=== PATIENT | male | born 1970 | race African-American/Black ===

== ENCOUNTER → 2017-10-09 | Outpatient (CLI) | payer OTHER | END | disposition home or self-care (01) | LOC: US 15:13 | DX: L03.116 Cellulitis of left lower limb (principal); M79.89 Other specified soft tissue disorders | CPT/HCPCS: 93971 ==

== ENCOUNTER → 2018-09-17 | Outpatient (CLI) | payer OTHER ==
[2015-09-21 11:17] VITALS: BP 122/78
[~2018-09-17] MED LIST: ALPR0.254 PO; ASPI-482 PO; CLOP75TA PO; IBUP-1007 PO; LISI-334 PO; POTA99TA PO
[2018-09-17 08:35] LABS: CHOLESTEROL/HDL RATIO 3.2
== END | disposition home or self-care (01) ==
LOC: LAB 07:50
PROVIDERS: ATTEND Internal Medicine Cardiovascular Disease
DX: I25.10 Atherosclerotic heart disease of native coronary artery without angina pectoris (principal)
CPT/HCPCS: 36415; 80061; 83721

== ENCOUNTER 2019-06-21 08:10 | Inpatient (IN) | payer BC, OTHER ==
[~2019-06-21] VITALS: Ht 185.4 cm; Wt 147.0 kg
--- NOTE | 2019-06-21 08:48 | PHYS DOC ---
Past Medical History Past Medical History: CAD, Hypertension, CA Past Surgical History: Other Additional Past Surgical Histo: 1 STENT PLACED, Bina-en-Y bariatric surgery Smoking: Cigarettes (The patient is a nonsmoker.) Alcohol Use: Rarely Drug Use: None Adult General Chief Complaint Chief Complaint: TARRY STOOL HPI HPI Patient is a 49-year-old male who presents to the emergency department for evaluation. He states that for the past 3-4 days he has had some dark, tarry sto ols. He states that he takes iron and did not think much of his dark stools, and did recently changed the brand of the iron supplementation was taking. He reports that about a week ago he had an episode of shortness of breath when walking up stairs but this has not been persistent. He denies having had or currently having any chest pain, denies current dyspnea on exertion, pleuritic pain, cough, although he does admit some occasional dizziness and lightheadedness. There are no alleviating or exacerbating factors to his symptoms except as noted above.. Review of Systems Review of Systems Constitutional: Denies fever or chills [] Eyes: Denies change in visual acuity, redness, or eye pain [] HENT: Denies nasal congestion or sore throat [] Respiratory: Denies cough or current shortness of breath [] Cardiovascular: No additional information not addressed in HPI [] GI: Denies abdominal pain, nausea, vomiting, grossly bloody stools or diarrhea [] : Denies dysuria or hematuria [] Musculoskeletal: Denies back pain or joint pain [] Integument: Denies rash or skin lesions [] Neurologic: Denies headache, focal weakness or sensory changes [] Endocrine: Denies polyuria or polydipsia [] All other systems were reviewed and found to be within normal limits, except as documented in this note. Current Medications Current Medications Current Medications Medications (Trade) Dose Ordered Sig/Matilde Start Time Stop Time Status Last Admin Dose Admin Dextrose/Lactated Ringer's 1,000 ml @ 125 mls/hr 1X ONCE 06/21/19 10:45 06/21/19 18:44 Pantoprazole Sodium (PROTONIX VIAL for IV PUSH) 80 mg 1X ONCE 06/21/19 10:30 06/21/19 10:31 DC 06/21/19 10:34 80 MG Allergies Allergies Allergies Coded Allergies Type Severity Reaction Last Updated Verified No Known Drug Allergies 2/24/16 No Physical Exam Physical Exam PHYSICAL EXAM: CONSTITUTIONAL: Well developed, well nourished HEAD: normocephalic, atraumatic EENT: PERRL, EOMI. Conjunctivae mildly pale, sclerae non-icteric; moist mucous membranes. NECK: Supple, non-tender; no meningismus. LUNGS: Lungs CTA, breathing even and unlabored. Normal air movement. HEART: Regular rate and rhythm, no murmur CHEST: No deformity; non-tender ABDOMEN: The abdomen is soft, and non-tender, no masses or bruits. EXTREM: Normal ROM; no deformity, no calf tenderness. Normal pulses palpable in all extremities. There is no pedal edema. SKIN: No rash; no diaphoresis NEURO: Alert; normal speech and cognition; CN's grossly intact; strength grossly intact without focal deficit. BACK: No CVA TTP. RECTAL EXAM: Brown stool is present, no gross blood. Current Patient Data Vital Signs Vital Signs Date Time Temp Pulse Resp B/P (MAP) Pulse Ox O2 Delivery O2 Flow Rate FiO2 06/21/19 09:55 122/73 (89) 06/21/19 08:41 97.9 88 18 97 Room Air 97.9 Lab Values Laboratory Tests Test 06/21/19 08:50 06/21/19 09:05 Stool Occult Blood Negative (NEG) White Blood Count 7.4 x10^3/uL (4.0-11.0) Red Blood Count 3.42 x10^6/uL (4.30-5.70) L Hemoglobin 9.5 g/dL (13.0-17.5) L Hematocrit 29.4 % (39.0-53.0) L Mean Corpuscular Volume 86 fL (79-100) Mean Corpuscular Hemoglobin 28 pg (25-35) Mean Corpuscular Hemoglobin Concent 32 g/dL (31-37) Red Cell Distribution Width 14.6 % (11.5-14.5) H Platelet Count 274 x10^3/uL (140-400) Neutrophils (%) (Auto) 75 % (31-73) H Lymphocytes (%) (Auto) 16 % (24-48) L Monocytes (%) (Auto) 7 % (0-9) Eosinophils (%) (Auto) 1 % (0-3) Basophils (%) (Auto) 1 % (0-3) Neutrophils # (Auto) 5.6 x10^3/uL (1.8-7.7) Lymphocytes # (Auto) 1.2 x10^3/uL (1.0-4.8) Monocytes # (Auto) 0.5 x10^3/uL (0.0-1.1) Eosinophils # (Auto) 0.1 x10^3/uL (0.0-0.7) Basophils # (Auto) 0.0 x10^3/uL (0.0-0.2) Prothrombin Time 13.3 SEC (11.7-14.0) Prothrombin Time INR 1.0 (0.8-1.1) Activated Partial Thromboplast Time 30 SEC (24-38) Sodium Level 141 mmol/L (136-145) Potassium Level 3.9 mmol/L (3.5-5.1) Chloride Level 105 mmol/L (98-107) Carbon Dioxide Level 30 mmol/L (21-32) Anion Gap 6 (6-14) Blood Urea Nitrogen 15 mg/dL (8-26) Creatinine 1.1 mg/dL (0.7-1.3) Estimated GFR (Cockcroft-Gault) 86.8 BUN/Creatinine Ratio 14 (6-20) Glucose Level 99 mg/dL (70-99) Calcium Level 8.4 mg/dL (8.5-10.1) L Total Bilirubin 0.4 mg/dL (0.2-1.0) Aspartate Amino Transferase (AST) 22 U/L (15-37) Alanine Aminotransferase (ALT) 25 U/L (16-63) Alkaline Phosphatase 53 U/L (46-116) Troponin I Quantitative < 0.017 ng/mL (0.000-0.055) JI-Mqv-Z-Type Natriuretic Peptide 54 pg/mL (0-124) Total Protein 6.7 g/dL (6.4-8.2) Albumin 3.3 g/dL (3.4-5.0) L Albumin/Globulin Ratio 1.0 (1.0-1.7) Laboratory Tests 06/21/19 09:05 Laboratory Tests 06/21/19 09:05 EKG EKG [] Radiology/Procedures Radiology/Procedures PROCEDURE: CHEST PA & LATERAL EXAM: PA and Lateral Views of the Chest DATE: 06/21/2019 8:37 AM INDICATION: Shortness of breath, dyspnea on exertion COMPARISON: 09/22/2015 FINDINGS/ IMPRESSION: Exam is limited by mild motion artifact. Within these constraints the cardiac mediastinal silhouette is normal. No lobar consolidation. No pleural effusion or pneumothorax.[] Course & Med Decision Making Course & Med Decision Making Pertinent Labs and Imaging studies reviewed. (See chart for details) []10:05 AM: The patient's condition remains stable. He has had dark stool and appears to have anemia. I do not have a recent hemoglobin available for him, but he has been higher in the past. This was before his gastric bypass however. He is on aspirin and Plavix, which make him high risk for GI bleeding. I paged the hospitalist, who will admit the patient to the hospital for further evaluation and treatment. 10:50 AM: I did receive some additional records from . The patient's hemoglobin was 14, hematocrit 45, on 05/11/19. Dragon Disclaimer Dragon Disclaimer This electronic medical record was generated, in whole or in part, using a voice recognition dictation system. Departure Departure Impression: Primary Impression: Anemia Additional Impression: Dark stools Disposition: ADMITTED INPATIENT Condition: STABLE Referrals: CATHERINE JULES MD (PCP) Problem Qualifiers CAITLIN ALBA MD Jun 21, 2019 08:48
--- NOTE | 2019-06-21 09:05 | RAD ---
EXAM: PA and Lateral Views of the Chest DATE: 06/21/2019 8:37 AM INDICATION: Shortness of breath, dyspnea on exertion COMPARISON: 09/22/2015 FINDINGS/ IMPRESSION: Exam is limited by mild motion artifact. Within these constraints the cardiac mediastinal silhouette is normal. No lobar consolidation. No pleural effusion or pneumothorax. Electronically signed by: Amos Melendez MD (06/21/2019 9:02 AM) [id number]
[2019-06-21 09:14] LABS: FECAL OB PT NEGATIVE (NEG)
[2019-06-21 09:24] LABS: BASO % 1 % (0-3); EOS # 0.1 x10^3/uL (0.0-0.7); EOS % 1 % (0-3); HEMATOCRIT 29.4 % (39.0-53.0); HEMOGLOBIN 9.5 g/dL (13.0-17.5); LYMPH # 1.2 x10^3/uL (1.0-4.8); LYMPH % 16 % (24-48); MEAN CORPUSCULAR HEMOGLOBIN 28 pg (25-35); MEAN CORPUSCULAR HGB CONC 32 g/dL (31-37); MEAN CORPUSCULAR VOLUME 86 fL (79-100); MONO # 0.5 x10^3/uL (0.0-1.1); MONO % 7 % (0-9); NEUT # 5.6 x10^3/uL (1.8-7.7); NEUT % 75 % (31-73); PLATELET COUNT 274 x10^3/uL (140-400); RED BLOOD COUNT 3.42 x10^6/uL (4.30-5.70); RED CELL DISTRIBUTION WIDTH 14.6 % (11.5-14.5); WHITE BLOOD COUNT 7.4 x10^3/uL (4.0-11.0)
[2019-06-21 09:34] LABS: PROTHROMBIN TIME PATIENT 13.3 SEC (11.7-14.0)
[2019-06-21 09:35] LABS: CALCIUM 8.4 mg/dL (8.5-10.1); CREATININE 1.1 mg/dL (0.7-1.3); GFR 86.8; POTASSIUM 3.9 mmol/L (3.5-5.1)
[2019-06-21 09:41] LABS: ALBUMIN 3.3 g/dL (3.4-5.0); TOTAL BILIRUBIN 0.4 mg/dL (0.2-1.0); TOTAL PROTEIN 6.7 g/dL (6.4-8.2)
[2019-06-21] MEDS ORDERED: PANTOPRAZOLE IV PUSH 40 MG VIAL. IVP ONE (10:30)
[2019-06-21] MEDS ORDERED: IV DEXTROSE 5%-LACT RINGERS 1,000 ML IV ONE (10:45)
[2019-06-21 12:00] VITALS: BP 144/70
--- NOTE | 2019-06-21 13:37 | PDOC2 ---
GI CONSULT Reason For Consult: possible UGI bleed post Bina-en-Y HPI: HPI: 49 y/o male admitted through ER - d/w ER physician earlier today - dark stools and anemia w/ h/o Bina-en-Y. Patient reports black stools x about 5 days - first runny, then "pasty," and now more formed. Takes iron and had black stool in the past w/ this - recently changed brands and wonders if that contributes. Also wonders if he had "the bug going around." Last stool looked more normal in color. Did feel a little dizzy and light-headed. H/o GERD - previously on pantoprazole, stopped after Bina-en-Y. Now has a lot of burping - worse yesterday. Occasional dysphagia (food caught in midchest) when eats too quickly. No n/v. Doesn't think he has abdominal pain - but feels funny when he sees dark stool, wonders about anxiety. No diarrhea or constipation. No hematochezia. Has lost 107 pounds since Bina-en-Y (at [facility] in 04/2018 w/ Dr. Gudino) - watches what he eats, walks three miles daily. Assumes had an EGD prior to Bina-en-Y but isn't sure. No previous colonoscopy. No GB, liver, pancreas, or PUD history. Used to take ibuprofen more frequently before Bina-en-Y, but now takes about once weekly for muscle cramps - tries to stick with Tylenol otherwise. PMH: PMH: CAD w/ stent, HTN, GERD, Bina-en-Y FH: Family History: Cancer (mother - stomach), CAD, Hypertension Social History: Smoke: No ALCOHOL: other (glass of wine 5 nights a week) Drugs: None ROS: GEN: Denies fevers, chills, sweats HEENT: Denies blurred vision, sore throat CV: Denies chest pain RESP: Denies shortness of air, cough GI: Per HPI : Denies hematuria, dysuria ENDO: +weight loss NEURO: +dizziness MSK: Denies weakness, joint pain/swelling SKIN: Denies jaundice, pruritus Vitals: Vitals: Vital Signs Date Time Temp Pulse Resp B/P (MAP) Pulse Ox O2 Delivery O2 Flow Rate FiO2 11/25/19 12:00 97.8 82 19 144/70 (94) 98 Room Air 97.8 Labs: Labs: Laboratory Tests Test 06/21/19 08:50 06/21/19 09:05 06/21/19 10:55 Stool Occult Blood Negative (NEG) White Blood Count 7.4 x10^3/uL (4.0-11.0) Red Blood Count 3.42 x10^6/uL (4.30-5.70) Hemoglobin 9.5 g/dL (13.0-17.5) 8.7 g/dL (13.0-17.5) Hematocrit 29.4 % (39.0-53.0) Mean Corpuscular Volume 86 fL (79-100) Mean Corpuscular Hemoglobin 28 pg (25-35) Mean Corpuscular Hemoglobin Concent 32 g/dL (31-37) Red Cell Distribution Width 14.6 % (11.5-14.5) Platelet Count 274 x10^3/uL (140-400) Neutrophils (%) (Auto) 75 % (31-73) Lymphocytes (%) (Auto) 16 % (24-48) Monocytes (%) (Auto) 7 % (0-9) Eosinophils (%) (Auto) 1 % (0-3) Basophils (%) (Auto) 1 % (0-3) Neutrophils # (Auto) 5.6 x10^3/uL (1.8-7.7) Lymphocytes # (Auto) 1.2 x10^3/uL (1.0-4.8) Monocytes # (Auto) 0.5 x10^3/uL (0.0-1.1) Eosinophils # (Auto) 0.1 x10^3/uL (0.0-0.7) Basophils # (Auto) 0.0 x10^3/uL (0.0-0.2) Prothrombin Time 13.3 SEC (11.7-14.0) Prothromb Time International Ratio 1.0 (0.8-1.1) Activated Partial Thromboplast Time 30 SEC (24-38) Sodium Level 141 mmol/L (136-145) Potassium Level 3.9 mmol/L (3.5-5.1) Chloride Level 105 mmol/L (98-107) Carbon Dioxide Level 30 mmol/L (21-32) Anion Gap 6 (6-14) Blood Urea Nitrogen 15 mg/dL (8-26) Creatinine 1.1 mg/dL (0.7-1.3) Estimated GFR (Cockcroft-Gault) 86.8 BUN/Creatinine Ratio 14 (6-20) Glucose Level 99 mg/dL (70-99) Calcium Level 8.4 mg/dL (8.5-10.1) Total Bilirubin 0.4 mg/dL (0.2-1.0) Aspartate Amino Transf (AST/SGOT) 22 U/L (15-37) Alanine Aminotransferase (ALT/SGPT) 25 U/L (16-63) Alkaline Phosphatase 53 U/L (46-116) Troponin I Quantitative < 0.017 ng/mL (0.000-0.055) HT-Gfk-Z-Type Natriuretic Peptide 54 pg/mL (0-124) Total Protein 6.7 g/dL (6.4-8.2) Albumin 3.3 g/dL (3.4-5.0) Albumin/Globulin Ratio 1.0 (1.0-1.7) Allergies: Coded Allergies: No Known Drug Allergies (Unverified , 09/20/15) Medications: Current Medications Medications (Trade) Dose Ordered Sig/Matilde Route PRN Reason Start Time Stop Time Status Last Admin Dose Admin Pantoprazole Sodium (PROTONIX VIAL for IV PUSH) 80 mg 1X ONCE IVP 06/21/19 10:30 06/21/19 10:31 DC 06/21/19 10:34 Dextrose/Lactated Ringer's 1,000 ml @ 125 mls/hr 1X ONCE IV 06/21/19 10:45 06/21/19 18:44 06/21/19 11:17 Imaging: Imaging: CXR IMPRESSION: Exam is limited by mild motion artifact. Within these constraints the cardiac mediastinal silhouette is normal. No lobar consolidation. No pleural effusion or pneumothorax. PE: GEN: NAD HEENT: Atraumatic, PERRL LUNGS: CTAB HEART: RRR ABD: NABS, S/ND/NT EXTREMITY: No edema SKIN: No rashes, no jaundice NEURO/PSYCH: A & O 3 A/P: A/P: Black stools - on iron Anemia - Hgb 9.5 (8.7 on recheck), Hemoccult negative - ER note indicates Hgb 14 on 05/11/19 GERD - stopped PPI in 2018 S/p Bina-en-Y @ [facility] in 04/2018 CRC screen - average risk H/o CAD on ASA and Plavix NSAID use - weekly ibuprofen -- Reviewed w/ Dr. Forman - stay NPO for EGD this afternoon. Continue PPI. Outpt screening colonoscopy at age 52. JUANITA PURCELL Jun 21, 2019 13:37
[2019-06-21 15:00] VITALS: BP 149/74
[2019-06-21] MEDS ORDERED: IV RINGERS,LACTATED 1000ML 1,000 ML IV ONE (15:15)
[2019-06-21] MEDS ORDERED: ALPR2TAB5 PO (15:29)
[2019-06-21] MEDS ORDERED: HYDR12.58 PO (15:29)
[2019-06-21] MEDS ORDERED: CHOL100014 PO (15:29)
[2019-06-21] MEDS ORDERED: MULT-496 PO (15:29)
[2019-06-21] MEDS ORDERED: AMLO10TA8 PO (15:29)
[2019-06-21] MEDS ORDERED: PANT20TA2 PO (15:29)
[2019-06-21] MEDS ORDERED: PROPOFOL 20 ML IV ONE ×2 (16:25→16:43)
--- NOTE | 2019-06-21 16:50 | PDOC4 ---
PROCEDURE Procedure EGD Indication: Anemia, Melena? Meds: per anesthesia Findings: E--mild reflux at 40cm. G--s/p dennis-en-y. Pouch OK. SB--shallow ulcer at anastomosis, small bowel side. No signs recent bleeding. Summer. well. IMP: anastomotic ulcer; no recent bleeding. Mild reflux. REC: BID PPI, QID sucralfate. Continue iron. OK to feed. Observe for bleeding. BARAK CAREY MD Jun 21, 2019 16:50
[2019-06-21] MEDS ORDERED: ALPRAZolam 1 MG TABLET PO PRN (17:45)
[2019-06-21 19:00] VITALS: BP 110/93
[2019-06-21] MEDS ORDERED: amLODIPine BESYLATE 10 MG TABLET PO SCH (21:00)
[2019-06-21] MEDS: ALPRAZolam 0.25 MG TABLET PO SCH (21:48)
[2019-06-21] MEDS: SUCRALFATE 1 GM TABLET. PO SCH (21:48)
[2019-06-21 23:00] VITALS: BP 95/54
[2019-06-22 03:00] VITALS: BP 92/80
[2019-06-22 06:48] LABS: BASO % 1 % (0-3); EOS # 0.2 x10^3/uL (0.0-0.7); EOS % 3 % (0-3); HEMATOCRIT 26.7 % (39.0-53.0); HEMOGLOBIN 8.6 g/dL (13.0-17.5); LYMPH # 1.7 x10^3/uL (1.0-4.8); LYMPH % 27 % (24-48); MEAN CORPUSCULAR HEMOGLOBIN 28 pg (25-35); MEAN CORPUSCULAR HGB CONC 32 g/dL (31-37); MEAN CORPUSCULAR VOLUME 87 fL (79-100); MONO # 0.5 x10^3/uL (0.0-1.1); MONO % 8 % (0-9); NEUT % 63 % (31-73); PLATELET COUNT 242 x10^3/uL (140-400); RED BLOOD COUNT 3.07 x10^6/uL (4.30-5.70); RED CELL DISTRIBUTION WIDTH 14.6 % (11.5-14.5); WHITE BLOOD COUNT 6.4 x10^3/uL (4.0-11.0)
[2019-06-22 07:00] VITALS: BP 150/82
[2019-06-22 07:02] LABS: CALCIUM 8.1 mg/dL (8.5-10.1); GFR 96.9; POTASSIUM 3.9 mmol/L (3.5-5.1)
[2019-06-22] MEDS ORDERED: PANTOPRAZOLE IV PUSH 40 MG VIAL. IVP SCH (07:30)
[2019-06-22] MEDS ORDERED: PANTOPRAZOLE 40 MG TABLET.DR. PO SCH (07:30)
[2019-06-22] MEDS ORDERED: LISINOPRIL 20 MG TABLET PO SCH (09:00)
[2019-06-22] MEDS ORDERED: CHOLECALCIFEROL (VITAMIN D3) 1,000 UNIT TABLET PO SCH (09:00)
[2019-06-22] MEDS ORDERED: MULTIVITAMIN with MINERAL TABLET. PO SCH (09:00)
[2019-06-22] MEDS ORDERED: POTASSIUM GLUCONATE 99 MG PO SCH (09:00)
[2019-06-22] MEDS ORDERED: NON FORMULARY ITEM (Pantoprazole Sodium (Protonix) 1 TAB) PO SCH (09:00)
--- NOTE | 2019-06-22 09:26 | PDOC2 ---
CARDIOLOGY CONSULT NOTE CHEIF COMPLAINT: Management of DAPT HPI: 49 y.o male admitted with anemia, tarry stools and mild dyspnea when climbing stairs. Underwent EGD and found to have anastomotic site ulcer from his previous gastric bypass. No active bleeding. Prior PCI in 2013 to the LAD. No current chest pain etc. PMHX: CAD HTN DLP Gastric bypass. SOCHX: No alcohol, tobacco or illicit drug use. FAMHX: NC CURRENT MEDS: hctz/lisinopril/amlodipine ALLERGIES: Allergies Coded Allergies Type Severity Reaction Last Updated Verified No Known Drug Allergies 06/21/19 No ROS: Negative unless otherwise noted above in HPI PHYSICAL EXAM: Vital Signs/I&O: Vital Signs Date Time Temp Pulse Resp B/P (MAP) Pulse Ox O2 Delivery O2 Flow Rate FiO2 06/22/19 07:00 98.2 84 14 150/82 (104) 97 Room Air 98.2 06/21/19 20:00 2.0 I & O 06/21/19 06/21/19 06/22/19 15:00 23:00 07:00 Intake Total 1040 ml 500 ml Output Total 0 ml Balance 1040 ml 500 ml Physical Exam: GEN.: No apparent distress. Alert and oriented. HEENT: Head is normocephalic, atraumatic NECK: Supple. LUNGS: Clear to auscultation. HEART: RRR, S1, S2 present. Peripheral pulses intact ABDOMEN: Soft, nontender. Positive bowel sounds. EXTREMITIES: Without any cyanosis. NEUROLOGIC: Normal speech, normal tone PSYCHIATRIC: Normal affect, normal mood. SKIN: No ulcerations DIAGNOSTIC TESTING: Cath in 2012 with focal LAD disease. PCI with one stent. Lab Trop negative. EKG negative. ASSESSMENT: 1. CAD s/p remote LAD PCI 2. HTN 3. DLP 4. GERD 5. Anemia - chronic 6. PUD PLAN: 1. Discussed case with Dr. Johnson. Given remote PCI, no acute need for DAPT. If ok per GI, would atleast continue asa or plavix monotherapy given that he has a proximal LAD stent. Will await their recs. Will plan for outpt evaluation if needed for any cardiac risk factor modification. Thanks addendum: Plan for plavix monotherapy. Thanks DANYELLE PAULINO MD Jun 22, 2019 09:26
[2019-06-22] MEDS ORDERED: FERR-36 PO (09:40)
[2019-06-22] MEDS ORDERED: PANT40TA77 PO (09:40)
[2019-06-22] MEDS: ALPRAZolam 0.25 MG TABLET PO SCH ×2 (09:41→14:27)
[2019-06-22] MEDS: SUCRALFATE 1 GM TABLET. PO SCH ×2 (09:41→11:42)
--- NOTE | 2019-06-22 09:48 | PDOC ---
Provider Note Provider Note H&P and discharge summary dictated.#[id number]. CATHERINE JULES MD Jun 22, 2019 09:48
[2019-06-22] MEDS ORDERED: SUCR1TAB35 PO (09:49)
[2019-06-22] MEDS ORDERED: IRON SUCROSE COMPLEX 400 MG in IV NORMAL SALINE 250ML 250 ML IV ONE (10:00)
--- NOTE | 2019-06-22 10:09 | HP ---
ADMIT DATE: 06/22/2019 HISTORY AND PHYSICAL AND DISCHARGE SUMMARY LOCATION: 578. REASON FOR ADMISSION TO THE HOSPITAL: Black stools, anemia, possible GI bleed. HISTORY OF PRESENT ILLNESS: The patient is a 49-year-old male. The patient has a history of hypertension, coronary artery disease, previous stent 5 years ago. He is on aspirin 81 mg and Plavix. He also has some back pain, taking ibuprofen. He noticed some black stools. He takes one iron tablet daily. He was feeling lightheaded, dizzy, came to the Emergency Room. His hemoglobin was low at 9.5, in the office was 11 and went down to 8.6. The patient had a black stool, but Hemoccult was negative for active bleed. The patient was seen by GI and an EGD was scheduled. PAST MEDICAL HISTORY: Hypertension, weight loss surgery one year ago and RY surgery and he lost 80 pounds, coronary artery disease, previous stents. PAST SURGICAL HISTORY: Cardiac stent 5 years ago, laparoscopic gastric bypass 1 year ago. ALLERGIES: No known allergies. MEDICATIONS AT HOME: The patient is on Plavix 75 mg daily, aspirin 81 mg daily, Protonix 40 mg. The patient is on iron, Xanax 0.25 daily, amlodipine 10 mg daily, vitamin D 1000 daily, hydrochlorothiazide 12.5 daily, lisinopril 20 mg daily, vitamin daily, potassium 99 mg daily. PERSONAL HISTORY: No history of alcohol or drug abuse. The patient had a history of smoking, planning to cut down. REVIEW OF SYMPTOMS: Denies any chest pain or shortness of breath. Only feels like black stool and weak and rest of the 14 systems reviewed and negative. PHYSICAL EXAMINATION: GENERAL: The patient is pleasant, not in any distress. VITAL SIGNS: Temperature 97, pulse 82, respirations 19, blood pressure 110/93, 97% on room air. HEENT: Head is atraumatic. Pupils are equal. Oral cavity shows no congestion. NECK: Supple. Thyroid not enlarged. JVD not elevated. CHEST: Symmetrical. CARDIOVASCULAR: S1, S2. LUNGS: Clear. ABDOMEN: Soft, nontender. Bowel sounds present. No mass palpable. EXTERNAL GENITALIA: Deferred. EXTREMITIES: No calf tenderness or edema. Pulses 1+. NEUROLOGIC: No focal deficit, moving all extremities. LABORATORY DATA: Shows a white count of 7, hemoglobin 9.5, platelets 274,000. INR is 1.0. Electrolytes showed sodium 141, potassium 3.9, chloride 105, bicarb 30, BUN 15, creatinine 1.1, glucose 99. LFTs were normal. BNP 54. His troponin was negative. Iron low at 34, TIBC 255, saturation low at 13. B12 is 946. TSH is 0.7. Hemoccult was negative. Chest x-ray was negative. FINAL DIAGNOSES: 1. Black stools. 2. Anemia. 3. Recent gastric bypass surgery for weight loss. 4. Coronary artery disease, previous stent 5 years ago, on aspirin and Plavix; however, he is taking ibuprofen. PLAN: At this time, the patient was admitted to the hospital. Type and screen. GI consult. EGD. Cardiology consult to see if he needs both aspirin and Plavix and is going to stop ibuprofen. HOSPITAL COURSE: The patient was admitted to the hospital and EGD was done, which shows an anastomotic ulcer with no recent bleeding, mild reflux. Continue iron and then discuss with Cardiology. We will stop aspirin and just give Plavix and also add Carafate. We will also give IV iron infusion in the hospital and see how he does. We will check his labs,Hb and iron periodically as outpatient. CATHERINE JULES MD DR: JIAN/jim JOB#: [id number] / [id number] ERYNOLD
[2019-06-22 11:00] VITALS: BP 139/73
--- NOTE | 2019-06-22 11:48 | PDOC ---
Subjective: Subjective: In restroom - says he's doing okay, tolerating meds. Objective: Objective: D/w cardiology - wondering about restarting Plavix or ASA. Vital Signs: Vital Signs Date Time Temp Pulse Resp B/P (MAP) Pulse Ox O2 Delivery O2 Flow Rate FiO2 06/22/19 11:00 98.0 77 16 139/73 (95) 96 Room Air 98.0 06/22/19 08:00 2.0 Labs: Laboratory Tests Test 06/22/19 06:27 White Blood Count 6.4 x10^3/uL Red Blood Count 3.07 x10^6/uL Hemoglobin 8.6 g/dL Hematocrit 26.7 % Mean Corpuscular Volume 87 fL Mean Corpuscular Hemoglobin 28 pg Mean Corpuscular Hemoglobin Concent 32 g/dL Red Cell Distribution Width 14.6 % Platelet Count 242 x10^3/uL Neutrophils (%) (Auto) 63 % Lymphocytes (%) (Auto) 27 % Monocytes (%) (Auto) 8 % Eosinophils (%) (Auto) 3 % Basophils (%) (Auto) 1 % Neutrophils # (Auto) 4.0 x10^3/uL Lymphocytes # (Auto) 1.7 x10^3/uL Monocytes # (Auto) 0.5 x10^3/uL Eosinophils # (Auto) 0.2 x10^3/uL Basophils # (Auto) 0.0 x10^3/uL Sodium Level 143 mmol/L Potassium Level 3.9 mmol/L Chloride Level 109 mmol/L Carbon Dioxide Level 29 mmol/L Anion Gap 5 Blood Urea Nitrogen 9 mg/dL Creatinine 1.0 mg/dL Estimated GFR (Cockcroft-Gault) 96.9 Glucose Level 95 mg/dL Calcium Level 8.1 mg/dL Vitamin B12 Level 859 pg/mL 25-Hydroxy Vitamin D Total 34.9 ng/mL Thyroid Stimulating Hormone (TSH) 0.749 uIU/mL Imaging: EGD 06/21 E--mild reflux at 40cm. G--s/p bina-en-y. Pouch OK. SB--shallow ulcer at anastomosis, small bowel side. No signs recent bleeding. IMP: anastomotic ulcer; no recent bleeding. Mild reflux. PE: GEN: NAD - in restroom NEURO/PSYCH: A & O 3 A/P: S/p Bina-en-Y w/ anastomotic ulcer GERD SHABBIR -- D/w Dr. Forman - ulcer likely more of an ischemic issue - would avoid ASA (can impede healing) if possible, but okay to resume Plavix. Consider outpt colonoscopy. Continue PPI, iron (getting infusion here), and sucralfate. UJANITA PURCELL Jun 22, 2019 11:48
--- NOTE | 2019-06-22 12:01 | NUR ---
SW following. Discussed with RN, pt is from home. RN advised no SW needs, anticipates discharge later today. SW will continue to follow.
[2019-06-22 14:57] VITALS: BP 111/52
--- NOTE | 2019-06-22 15:45 | NUR ---
IV VENOFER COMPLETED AT THIS TIME, SALINE LOCK REMOVED AND DISCHARGE INSTRUCTIONS GIVEN, QUESTIONS AND CONCERNS ANSWERED,PATIENT VERBALIZED UNDERSTANDING OF DISCHARGE INFORMATION INCLUDING TAKING ALL MEDICATIONS INSTRUCTED AND FOLLOWING UP WITH HIS PRIMARY PROVIDER IN 1-2 WEEKS, PATIENT ENCOURAGED BY THIS FOUNDRY MANAGER TO NOT TAKE ANY ASA OR OVER THE COUNTER MEDS THAT WOULD CAUSE BLEEDING, ALL PERSONAL BELONGINGS GATHERED BY THE PATIENT AND PLACED IN BAGS FOR DISCHARGE.
[2019-06-23] MEDS ORDERED: hydroCHLOROthiazide 12.5 MG CAPSULE PO SCH (09:00)
== END 2019-06-22 17:59 | disposition home or self-care (01) | DRG 382 ==
LOC: ER 08:10 → EEVIPCON 08:10 → 5 SOUTH 10:05
PROVIDERS: ADMIT Internal Medicine; ATTEND Internal Medicine
PROC: 0DJ08ZZ Inspection of Upper Intestinal Tract, Via Natural or Artificial Opening Endoscopic (ICD-10-PCS; principal; 2019-06-21 15:45)
DX: K28.9 Gastrojejunal ulcer, unspecified as acute or chronic, without hemorrhage or perforation (principal); I25.10 Atherosclerotic heart disease of native coronary artery without angina pectoris; I10 Essential (primary) hypertension; K21.9 Gastro-esophageal reflux disease without esophagitis; K27.9 Peptic ulcer, site unspecified, unspecified as acute or chronic, without hemorrhage or perforation; R13.10 Dysphagia, unspecified; E78.5 Hyperlipidemia, unspecified; D50.9 Iron deficiency anemia, unspecified; I25.2 Old myocardial infarction; Z98.84 Bariatric surgery status; Z95.5 Presence of coronary angioplasty implant and graft; Z87.891 Personal history of nicotine dependence; Z79.82 Long term (current) use of aspirin; Z79.02 Long term (current) use of antithrombotics/antiplatelets; Z87.11 Personal history of peptic ulcer disease; Z82.49 Family history of ischemic heart disease and other diseases of the circulatory system; Z80.9 Family history of malignant neoplasm, unspecified
CPT/HCPCS: 36415; 43235; 71046; 80048; 80053; 82274; 82306; 82607; 83540; 83550; 83880; 84443; 84484; 85018; 85025; 85610; 85730; 86850; 86900; 86901; 96374; C9113; J1756; J2704; J7050; J7120; 99285-25; G0378; J7030

== ENCOUNTER → 2020-03-27 | Outpatient (CLI) | payer BC ==
[~2020-03-27] MED LIST changes: +ALPR2TAB5 PO; +AMLO10TA8 PO; +CHOL100014 PO; +FERR-36 PO; +HYDR12.58 PO; +MULT-496 PO; +PANT20TA2 PO; +PANT40TA77 PO; +SUCR1TAB35 PO
--- NOTE | 2020-03-27 09:45 | CARD ---
MR#: [id number] Date of Study: 03/27/2020 Ordering Physician: DANYELLE PAULINO, Referring Physician: DANYELLE PAULINO, Tech: Ivonne Carmen [facility] APPROVED REPORT EXAM: Two-dimensional and M-mode echocardiogram with Doppler and color Doppler. Other Information Quality : Good INDICATION Cardiac Disease: CAD Morbid Obesity 2D DIMENSIONS RVDd3.1 (2.9-3.5cm)Left Atrium(2D)3.6 (1.6-4.0cm) IVSd1.0 (0.7-1.1cm)Aortic Root(2D)3.1 (2.0-3.7cm) LVDd4.9 (3.9-5.9cm)LVOT Diameter2.0 (1.8-2.4cm) PWd1.0 (0.7-1.1cm)LVDs3.1 (2.5-4.0cm) FS (%) 37.7 %SV76.4 ml LVEF(%)60.0 (>50%) Aortic Valve AoV Peak Gutierrez.130.3cm/sAoV VTI25.1cm AO Peak GR.6.8mmHgLVOT Peak Gutierrez.132.3cm/s AO Mean GR.4mmHgAVA (VMAX)3.20cm2 MINH (VTI)3.30cm2 Mitral Valve MV E Jwlkojej297.8cm/sMV DECEL QVRD609kd MV A Jginvwob83.5cm/sE/A Ratio1.3 Pulmonary Vein S1 Fzleyqss01.7cm/sD2 Bgvjbjjb82.7cm/s LEFT VENTRICLE The left ventricle is normal size. There is normal left ventricular wall thickness. The left ventricu lar systolic function is normal and the ejection fraction is within normal range. The Ejection Fracti on is 55-60%. There is normal LV segmental wall motion. Transmitral Doppler flow pattern is Grade I-a bnormal relaxation pattern. RIGHT VENTRICLE The right ventricle is normal size. The right ventricular systolic function is normal. ATRIA The left atrium size is normal. The right atrium size is normal. The interatrial septum is intact wit h no evidence for an atrial septal defect or patent foramen ovale as noted on 2-D or Doppler imaging. AORTIC VALVE The aortic valve is calcified but opens well. Doppler and Color Flow revealed no significant aortic r egurgitation. There is no significant aortic valvular stenosis. MITRAL VALVE The mitral valve is normal in structure and function. There is no evidence of mitral valve prolapse. There is no mitral valve stenosis. Doppler and Color-flow revealed trace mitral regurgitation. TRICUSPID VALVE The tricuspid valve is normal in structure and function. Doppler and Color Flow revealed no tricuspid valve regurgitation noted. There is no tricuspid valve stenosis. PULMONIC VALVE The pulmonary valve is normal in structure and function. Doppler and Color Flow revealed no pulmonic valvular regurgitation. There is no pulmonic valvular stenosis. GREAT VESSELS The aortic root is normal in size. The ascending aorta is not well seen. The IVC is normal in size an d collapses >50% with inspiration. PERICARDIAL EFFUSION There is no evidence of significant pericardial effusion. Critical Notification Critical Value: No <Conclusion> The left ventricular systolic function is normal and the ejection fraction is within normal range. Th e Ejection Fraction is 55-60%. There is normal LV segmental wall motion. Signed by : Danyelle Paulino, Electronically Approved : 03/27/2020 09:45:27
== END | disposition home or self-care (01) ==
LOC: ECHO 07:41
PROVIDERS: ATTEND Internal Medicine Cardiovascular Disease
DX: I35.1 Nonrheumatic aortic (valve) insufficiency (principal); I25.10 Atherosclerotic heart disease of native coronary artery without angina pectoris
CPT/HCPCS: 93306